=== PATIENT | male | born 1975 | race African-American/Black ===

== ENCOUNTER 2019-05-25 10:14 | Emergency (ER) | payer OTHER ==
[~2019-05-25] VITALS: Ht 167.6 cm; Wt 68.0 kg
[2019-05-25 10:14] VITALS: TEMP 98.1
[2019-05-25 10:40] LABS: PLATELET COUNT 253 K/uL (142-355)
[2019-05-25 10:48] LABS: POTASSIUM 3.6 mmol/L (3.6-5.2)
[2019-05-25 11:44] VITALS: BP 139/78
== END 2019-05-25 12:23 | disposition home or self-care (01) ==
LOC: ED 10:14
PROVIDERS: Emergency Medicine
DX: K85.90 Acute pancreatitis without necrosis or infection, unspecified (principal)
CPT/HCPCS: 36415; 80053; 81000; 82550; 82553; 83690; 84484; 85027; 86318; 87502; 87651; 93005; 96374; 99284; J1885